=== PATIENT | male | born 1950 | race Caucasian/White ===

== ENCOUNTER → 2022-07-11 | Outpatient (CLI) | payer MEDICARE, BC ==
--- NOTE | 2022-07-11 12:36 | CT ---
EXAMINATION TYPE: CT abdomen pelvis wo con DATE OF EXAM: 07/11/2022 COMPARISON: HISTORY: chronic pain CT DLP: 277.9 mGycm Automated exposure control for dose reduction was used. TECHNIQUE: Helical acquisition of images was performed from the lung bases through the pelvis. FINDINGS: LUNG BASES: Subsegmental change involving the right lower lobe. Correlate for COPD.. LIVER/GB: No significant abnormality is appreciated. PANCREAS: No significant abnormality is seen. SPLEEN: No significant abnormality is seen. ADRENALS: No significant abnormality is seen. KIDNEYS: There is a 7 cm cyst involving the anterior left kidney measuring 6 Hounsfield units. Multip le simple cysts. No hydronephrosis. There is a nonobstructing 3 mm lower pole left renal calculus. ADENOPATHY: None visualized. OSSEOUS STRUCTURES: Chronic right iliac deformity with multilevel degenerative disc disease and grad e 1 anterolisthesis L4 on L5. Postsurgical changes involving the right hip and arthropathy of the lef t hip. Chronic deformity of the right pubic rami. BOWEL: Bowel gas pattern nonspecific with no obstruction. OTHER: Atherosclerotic change aorta and iliac vasculature there is small hiatal hernia. IMPRESSION: 1. Chronic appearing skeletal deformities as discussed above. Suspect canal stenosis lower lumbar spi ne. 2. Nonobstructing lower pole left renal calculus with large simple appearing left renal cyst. 3. COPD 4. Nonspecific bowel gas pattern with no diagnostic evidence of obstruction. 5. Prostate hypertrophy. Correlate with PSA
== END | disposition home or self-care (01) ==
LOC: RADCTMAIN 11:34
PROVIDERS: ATTEND Family Medicine
DX: J44.9 Chronic obstructive pulmonary disease, unspecified (principal); N20.0 Calculus of kidney; N28.1 Cyst of kidney, acquired; N40.0 Benign prostatic hyperplasia without lower urinary tract symptoms
CPT/HCPCS: 74176

== ENCOUNTER 2022-08-11 06:20 | Day surgery (SDC) | payer MEDICARE, BC ==
[2022-08-10 10:07] VITALS: BMI 19.8
[~2022-08-11 06:20] MED LIST: LACTATED RINGERS 1,000 ML IV SCH
[2022-08-11] MEDS ORDERED: LACTATED RINGERS 1,000 ML IV ONE (06:56)
[2022-08-11 07:03] VITALS: TEMP 98
[2022-08-11] MEDS ORDERED: PROPOFOL 10 MG/ML 20 ML VIAL IV ONE (07:25)
[2022-08-11] MEDS ORDERED: LIDOCAINE 2% INJ 20 MG/ML (2 ML VIAL) ONE (07:25)
--- NOTE | 2022-08-11 07:46 | P.PCN ---
Date of Procedure: 08/11/22 Procedure(s) Performed: Brief history: Patient is a pleasant 72-year-old white male scheduled for an elective upper endoscopy as well as colonoscopy as a part of evaluation of progressive dysphagia to solids and liquids for the last 2 months duration associated with this a 15 pounds. Also complaining of change in bowel habits and severe rectal pain. Procedure performed: Esophagogastroduodenoscopy with biopsy Colonoscopy Preoperative diagnosis: Progressive dysphagia to solids of 2 months duration and weight loss. Rectal pain and change in bowel habits. Anesthesia: MAC Procedure: After informed consent was obtained from the patient was brought into the endoscopy unit and IV sedation was administered by anesthesia under continuous monitoring. Initially upper endoscopy was done. The Olympus GF 160 video endoscope was inserted inserted into the mouth and esophagus intubated without any difficulty and was gradually advanced into the distal esophagus. The esophagus appeared slightly dilated with retained liquid noted. After thorough aspiration there was tightness in the lower esophageal sphincter noted. With gentle pressure I was able to advance the scope into the stomach and duodenum and carefully examined. The bulb and second part of the duodenum appeared normal. The scope was then withdrawn into the stomach adequately insufflated with air and upon careful examination the antrum and body, cardia and fundus appeared normal. The scope was then withdrawn into the esophagus. The GE junction was located at 40 cm to the incisors. It appeared regular with some erythema noted. There was mild esophagitis noted in the distal esophagus. The lower esophagus into was very tight suspicious for esophageal achalasia. Rest of the esophagus appeared slightly dilated with retained liquids. Patient tolerated the procedure well. At this time the patient continued to remain sedation. Initial digital rectal examination was normal. Olympus CF 160 video colonoscope was then inserted into the rectum and gradually advanced to the cecum without any difficulty. Careful examination was performed as the scope was gradually being withdrawn. The prep was excellent. The cecum, ascending colon, transverse colon, descending colon, sigmoid colon and rectum appeared normal. Retroflexion was performed in the rectum and small internal hemorrhoids were noted. Patient tolerated the procedure well. Impression: 1. Upper Endoscopy revealed tight lower esophageal sphincter with slightly dilated esophagus and retained liquids suspicious for esophageal achalasia. Mild antral gastritis 2. Colonoscopy was within normal limits with no evidence of colorectal neoplasia. Small internal hemorrhoids seen. Recommendations: Findings of this examination were discussed with the patient as well as his family. He was advised to follow with the biopsy results. He will be scheduled for an esophageal manometry to evaluate for possible esophageal achalasia.Follow up in office in 2 weeks.
[2022-08-11] MEDS ORDERED: ONDANSETRON 4 MG/2 ML VIAL ONE (07:58)
[2022-08-11] MEDS ORDERED: ONDANSETRON 4 MG/2 ML VIAL IVP ONE (08:01)
[2022-08-11 08:04] VITALS: RESP 18
[2022-08-11 08:18] VITALS: BP 128/80; PULSE 66
== END 2022-08-11 08:48 | disposition home or self-care (01) ==
LOC: ORWHC2ENDO 06:20
PROVIDERS: ATTEND Internal Medicine Gastroenterology
DX: K29.50 Unspecified chronic gastritis without bleeding (principal); K22.89 Other specified disease of esophagus; K64.8 Other hemorrhoids; R13.10 Dysphagia, unspecified; F17.210 Nicotine dependence, cigarettes, uncomplicated; F32.A Depression, unspecified; K21.9 Gastro-esophageal reflux disease without esophagitis; R19.4 Change in bowel habit
CPT/HCPCS: 88305; 45378; 43239; J2405; J2704; J2001